=== PATIENT | female | born 1960 | race Caucasian/White ===

== ENCOUNTER → 2017-11-01 | Outpatient (CLI) | payer OTHER ==
[~2017-11-01] MED LIST: ACET-814 PO; CHOL200024 PO; DIPH25TA2 PO; PARO20TA4 PO; TRAM50TA2 PO
[2017-11-01 11:48] LABS: BASOPHILS # (AUTO) 0.08 x10^3/uL (0-0.1); BASOPHILS % (AUTO) 1 % (0-1); EOSINOPHILS % (AUTO) 2 % (1-7); LYMPHOCYTES # (AUTO) 2.91 x10^3/uL (1-3.4); LYMPHOCYTES % (AUTO) 32 % (22-44); MD NO; MEAN CORPUSCULAR HEMOGLOBIN 32.6 pg (27.0-34.8); MEAN CORPUSCULAR HGB CONC 34.5 g/dL (32.4-35.8); MEAN CORPUSCULAR VOLUME 94.6 fL (80-100); MEAN PLATELET VOLUME 7.3 fL (7.4-10.4); MONOCYTES # (AUTO) 0.62 x10^3/uL (0.2-0.8); MONOCYTES % (AUTO) 7 % (2-9); NEUTROPHILS # (AUTO) 5.39 x10^3/uL (1.8-6.8); NEUTROPHILS % (AUTO) 59 % (42-75); PLATELET COUNT 293 x10^3/uL (130-400); RED BLOOD COUNT 4.19 x10^6/uL (3.82-5.3); RED CELL DISTRIBUTION WIDTH 13.9 % (9.6-15.2)
[2017-11-01 11:51] LABS: MICROSCOPIC AUTO
[2017-11-01 11:53] LABS: CULTURE INDICATED? YES
[2017-11-01 11:54] LABS: INTERNATIONAL NORMALIZED RATIO 0.96 (0.93-1.1); PROTHROMBIN TIME 9.9 Seconds (9.6-11.5)
[2017-11-01 11:56] LABS: ANION GAP 4 mmol/L (5-15); CALCIUM 8.6 mg/dL (8.5-10.1); CHLORIDE 105 mmol/L (98-107)
[2017-11-01 11:58] LABS: CREATININE 0.74 mg/dL (0.55-1.02)
== END | disposition home or self-care (01) ==
LOC: STAR 10:35
PROVIDERS: ATTEND Neurological Surgery
DX: Z01.818 Encounter for other preprocedural examination (principal); M43.16 Spondylolisthesis, lumbar region; M51.36 Other intervertebral disc degeneration, lumbar region; M48.062 Spinal stenosis, lumbar region with neurogenic claudication
CPT/HCPCS: 36415; 71046; 80048; 81001; 85025; 85610; 85730; 87086; 93005

== ENCOUNTER 2017-11-06 08:57 | Inpatient (IN) | payer OTHER ==
[~2017-11-06] VITALS: Ht 162.6 cm; Wt 66.8 kg
[2017-11-06] MEDS ORDERED: THROMBIN 5,000 UNIT VIAL TP ONE (09:50)
[2017-11-06] MEDS ORDERED: BUPIVACAINE/PF 0.5% ONE (09:50)
[2017-11-06] MEDS ORDERED: VANCOMYCIN 1,000 MG ONE (09:51)
[2017-11-06] MEDS ORDERED: MIDAZOLAM 1 MG/ML, 2ML ONE (09:51)
[2017-11-06] MEDS ORDERED: BACITRACIN 50,000 UNIT ONE (09:51)
[2017-11-06] MEDS ORDERED: PROPOFOL 50 ML ONE ×2 (09:51)
[2017-11-06] MEDS ORDERED: EPINEPHRINE 1 MG/ML, 1ML ONE (09:51)
[2017-11-06] MEDS ORDERED: FENTANYL PF 250 MCG/5ML ONE (09:52)
[2017-11-06] MEDS ORDERED: OXYcodone 5 MG/5 ML ORAL.SOL UDC PO PRN (10:00)
[2017-11-06] MEDS ORDERED: hydrALAzine 20 MG/ML, 1ML IV PRN (10:00)
[2017-11-06] MEDS ORDERED: LABETALOL 5MG/ML, 20ML IV PRN (10:00)
[2017-11-06] MEDS ORDERED: PROMETHAZINE 25 MG/ML, 1ML IV PRN (10:00)
[2017-11-06] MEDS ORDERED: ONDANSETRON 2MG/ML, 2ML IV PRN (10:00)
[2017-11-06] MEDS ORDERED: ACETAMINOPHEN 325 MG TABLET PO PRN (10:00)
[2017-11-06] MEDS ORDERED: MEPERIDINE/PF 25MG/0.5ML IVPush PRN (10:00)
[2017-11-06] MEDS ORDERED: HYDROmorphone 1 MG/ML, 1ML IV PRN (10:00)
[2017-11-06 10:05] VITALS: BP 113/67
[2017-11-06] MEDS ORDERED: CEFAZOLIN 1,000 MG ONE ×2 (10:52)
[2017-11-06] MEDS ORDERED: DEXAMETHASONE 4 MG/ML, 1ML ONE ×2 (11:23)
[2017-11-06] MEDS ORDERED: ROCURONIUM 10MG/ML,5ML ONE (12:24)
[2017-11-06] MEDS ORDERED: ONDANSETRON 2MG/ML, 2ML ONE (12:25)
[2017-11-06] MEDS ORDERED: FENTANYL PF 100 MCG/2ML ONE (13:19)
[2017-11-06] MEDS ORDERED: ACETAMINOPHEN 650 MG/20.3 ML UDC ONE (13:19)
[2017-11-06] MEDS ORDERED: OXYcodone 5 MG/5 ML ORAL.SOL UDC ONE (13:19)
[2017-11-06] MEDS: FENTANYL PF 100 MCG/2ML IV PRN ×2 (13:22→13:31)
[2017-11-06] MEDS ORDERED: HYDROmorphone 2 MG/ML, 1ML ONE (13:23)
[2017-11-06] MEDS ORDERED: BISACODYL 10 MG SUPP PR PRN (13:30)
[2017-11-06] MEDS ORDERED: LABETALOL 5MG/ML, 20ML IVPush PRN (13:30)
[2017-11-06] MEDS ORDERED: PROMETHAZINE 25 MG/ML, 1ML IM PRN (13:30)
[2017-11-06] MEDS ORDERED: DIPHENHYDRAMINE 50 MG CAPSULE PO PRN (13:30)
[2017-11-06] MEDS ORDERED: PHARMACY MAY ADJ FOR RENAL FX MC PRN (13:30)
[2017-11-06] MEDS ORDERED: DIPHENHYDRAMINE 50 MG/ML, 1ML IVPush PRN (13:30)
[2017-11-06] MEDS ORDERED: HYDROcodone/APAP 5/325 TABLET PO PRN (13:30)
[2017-11-06] MEDS ORDERED: ASPIRIN 325 MG TABLET ONE (14:01)
[2017-11-06] MEDS ORDERED: ASPIRIN 81 MG TABLET CHEW PO ONE (14:30)
[2017-11-06 14:43] LABS: TROPONIN I < 0.015 ng/mL (0.000-0.045)
[2017-11-06 16:25] VITALS: BP 102/63
[2017-11-06] MEDS: NS + 20MEQ KCL 1,000 ML IV SCH (17:51)
[2017-11-06] MEDS: CEFAZOLIN PMX 1GM/50ML 50 ML IVPB SCH (18:29)
[2017-11-06 20:02] VITALS: BP 110/72
[2017-11-06] MEDS: SODIUM CHLORIDE FLUSH 10ML SYR IVF SCH (20:28)
[2017-11-06] MEDS: ONDANSETRON 2MG/ML, 2ML IVPush PRN (23:44)
[2017-11-06 23:53] LABS: TROPONIN I < 0.015 ng/mL (0.000-0.045)
[2017-11-07 00:11] VITALS: BP 108/63
[2017-11-07] MEDS: OXYcodone/APAP 5/325MG TABLET PO PRN ×5 (02:28→22:39)
[2017-11-07] MEDS: CEFAZOLIN PMX 1GM/50ML 50 ML IVPB SCH (03:03)
[2017-11-07 04:27] VITALS: BP 102/59
[2017-11-07 05:53] LABS: ANION GAP 6 mmol/L (5-15); CALCIUM 8.4 mg/dL (8.5-10.1); CHLORIDE 110 mmol/L (98-107)
[2017-11-07 05:55] LABS: BASOPHILS # (AUTO) 0.01 x10^3/uL (0-0.1); BASOPHILS % (AUTO) 0 % (0-1); CREATININE 0.56 mg/dL (0.55-1.02); EOSINOPHILS % (AUTO) 0 % (1-7); LYMPHOCYTES # (AUTO) 2.16 x10^3/uL (1-3.4); LYMPHOCYTES % (AUTO) 17 % (22-44); MD NO; MEAN CORPUSCULAR HEMOGLOBIN 32.1 pg (27.0-34.8); MEAN CORPUSCULAR VOLUME 94.6 fL (80-100); MEAN PLATELET VOLUME 7.7 fL (7.4-10.4); MONOCYTES # (AUTO) 0.99 x10^3/uL (0.2-0.8); MONOCYTES % (AUTO) 8 % (2-9); NEUTROPHILS # (AUTO) 9.58 x10^3/uL (1.8-6.8); NEUTROPHILS % (AUTO) 75 % (42-75); PLATELET COUNT 255 x10^3/uL (130-400); RED BLOOD COUNT 3.51 x10^6/uL (3.82-5.3)
[2017-11-07 05:59] LABS: TROPONIN I < 0.015 ng/mL (0.000-0.045)
[2017-11-07 06:50] VITALS: BP 102/63
[2017-11-07] MEDS ORDERED: PAROXETINE 20 MG TABLET PO SCH (09:00)
[2017-11-07] MEDS: CYCLOBENZAPRINE 10 MG TABLET PO PRN ×2 (09:31→22:30)
[2017-11-07] MEDS: SODIUM CHLORIDE FLUSH 10ML SYR IVF SCH ×2 (09:32→20:39)
[2017-11-07] MEDS: ENOXAPARIN 40 MG/0.4 ML SQ SCH (09:32)
[2017-11-07] MEDS: FAMOTIDINE 20 MG TABLET PO SCH ×2 (10:58→20:39)
[2017-11-07] MEDS: NS + 20MEQ KCL 1,000 ML IV SCH ×2 (10:58→22:30)
[2017-11-07] MEDS ORDERED: ACETAMINOPHEN 500 MG TABLET PO PRN (11:00)
[2017-11-07] MEDS: morphine SULFATE 10 MG/ML, 1ML IVPush PRN ×2 (11:39→20:39)
[2017-11-07 14:34] VITALS: BP 97/61
[2017-11-07 20:43] VITALS: BP 104/64
[2017-11-08] MEDS: OXYcodone/APAP 5/325MG TABLET PO PRN ×5 (02:26→22:31)
[2017-11-08 02:28] VITALS: BP 115/70
[2017-11-08] MEDS: morphine SULFATE 10 MG/ML, 1ML IVPush PRN ×2 (02:53→16:18)
[2017-11-08 05:52] LABS: BASOPHILS # (AUTO) 0.03 x10^3/uL (0-0.1); BASOPHILS % (AUTO) 0 % (0-1); EOSINOPHILS # (AUTO) 0.09 x10^3/uL (0-0.4); EOSINOPHILS % (AUTO) 1 % (1-7); LYMPHOCYTES # (AUTO) 1.95 x10^3/uL (1-3.4); LYMPHOCYTES % (AUTO) 18 % (22-44); MD NO; MEAN CORPUSCULAR HGB CONC 33.3 g/dL (32.4-35.8); MEAN CORPUSCULAR VOLUME 96.1 fL (80-100); MEAN PLATELET VOLUME 7.6 fL (7.4-10.4); MONOCYTES # (AUTO) 0.97 x10^3/uL (0.2-0.8); MONOCYTES % (AUTO) 9 % (2-9); NEUTROPHILS # (AUTO) 7.73 x10^3/uL (1.8-6.8); NEUTROPHILS % (AUTO) 72 % (42-75); PLATELET COUNT 235 x10^3/uL (130-400); RED BLOOD COUNT 3.48 x10^6/uL (3.82-5.3); RED CELL DISTRIBUTION WIDTH 13.9 % (9.6-15.2)
[2017-11-08 06:04] LABS: CHLORIDE 107 mmol/L (98-107)
[2017-11-08 06:12] LABS: ANION GAP 7 mmol/L (5-15); CALCIUM 8.1 mg/dL (8.5-10.1); CREATININE 0.49 mg/dL (0.55-1.02)
[2017-11-08 07:29] VITALS: BP 119/74
[2017-11-08] MEDS ORDERED: MAALOX/HYOSCYAMINE/LIDOCAINE 45 ML BTL PO PRN (09:00)
[2017-11-08] MEDS ORDERED: LACTATED RINGERS 1,000 ML IV SCH (09:30)
[2017-11-08] MEDS ORDERED: PAROXETINE 10 MG TABLET ONE (10:19)
[2017-11-08] MEDS: ENOXAPARIN 40 MG/0.4 ML SQ SCH (10:26)
[2017-11-08] MEDS: PAROXETINE 20 MG TABLET PO SCH (10:27)
[2017-11-08] MEDS: FAMOTIDINE 20 MG TABLET PO SCH ×2 (10:28→20:50)
[2017-11-08] MEDS: SODIUM CHLORIDE FLUSH 10ML SYR IVF SCH ×2 (10:29→20:50)
[2017-11-08] MEDS: NS + 20MEQ KCL 1,000 ML IV SCH (13:57)
[2017-11-08 14:24] VITALS: BP 132/80
[2017-11-08] MEDS: MAGNESIUM HYDROXIDE 8%, 30ML UDC PO PRN (14:50)
[2017-11-08] MEDS: ONDANSETRON 2MG/ML, 2ML IVPush PRN (14:55)
[2017-11-08 18:43] VITALS: BP 113/69
[2017-11-08] MEDS: SENNA/DOCUSATE TABLET PO PRN (20:50)
[2017-11-09 01:50] VITALS: BP 99/59
[2017-11-09] MEDS: NS + 20MEQ KCL 1,000 ML IV SCH ×2 (02:06→22:45)
[2017-11-09 05:45] LABS: BASOPHILS # (AUTO) 0.03 x10^3/uL (0-0.1); BASOPHILS % (AUTO) 0 % (0-1); EOSINOPHILS # (AUTO) 0.22 x10^3/uL (0-0.4); EOSINOPHILS % (AUTO) 2 % (1-7); LYMPHOCYTES # (AUTO) 1.77 x10^3/uL (1-3.4); LYMPHOCYTES % (AUTO) 18 % (22-44); MD NO; MEAN CORPUSCULAR HEMOGLOBIN 32.3 pg (27.0-34.8); MEAN CORPUSCULAR HGB CONC 33.9 g/dL (32.4-35.8); MEAN CORPUSCULAR VOLUME 95.4 fL (80-100); MEAN PLATELET VOLUME 7.3 fL (7.4-10.4); MONOCYTES # (AUTO) 0.88 x10^3/uL (0.2-0.8); MONOCYTES % (AUTO) 9 % (2-9); NEUTROPHILS # (AUTO) 6.94 x10^3/uL (1.8-6.8); NEUTROPHILS % (AUTO) 71 % (42-75); PLATELET COUNT 228 x10^3/uL (130-400); RED BLOOD COUNT 3.48 x10^6/uL (3.82-5.3); RED CELL DISTRIBUTION WIDTH 13.7 % (9.6-15.2)
[2017-11-09 05:50] LABS: INTERNATIONAL NORMALIZED RATIO 0.93 (0.93-1.1); PROTHROMBIN TIME 9.6 Seconds (9.6-11.5)
[2017-11-09 05:58] LABS: ANION GAP 5 mmol/L (5-15); CALCIUM 8.3 mg/dL (8.5-10.1); CHLORIDE 107 mmol/L (98-107)
[2017-11-09] MEDS: OXYcodone/APAP 5/325MG TABLET PO PRN (06:22)
[2017-11-09] MEDS ORDERED: BACITRACIN 50,000 UNIT ONE (06:37)
[2017-11-09] MEDS ORDERED: EPINEPHRINE 1 MG/ML, 1ML ONE (06:37)
[2017-11-09] MEDS ORDERED: SUGAMMADEX 200 MG/2 ML IVPush ONE (06:37)
[2017-11-09] MEDS ORDERED: BUPIVACAINE/PF 0.5% ONE ×2 (06:37→11:13)
[2017-11-09] MEDS ORDERED: THROMBIN 5,000 UNIT VIAL TP ONE (06:37)
[2017-11-09 07:16] VITALS: BP 110/70
[2017-11-09] MEDS ORDERED: REGADENOSON 0.4 MG/5 ML SYRINGE ONE (08:16)
[2017-11-09] MEDS ORDERED: VANCOMYCIN 1,000 MG ONE (09:57)
[2017-11-09] MEDS: morphine SULFATE 10 MG/ML, 1ML IVPush PRN ×2 (09:58→14:23)
[2017-11-09] MEDS: PAROXETINE 20 MG TABLET PO SCH (09:59)
[2017-11-09] MEDS: FAMOTIDINE 20 MG TABLET PO SCH ×2 (09:59→21:00)
[2017-11-09] MEDS: SODIUM CHLORIDE FLUSH 10ML SYR IVF SCH ×2 (09:59→21:00)
[2017-11-09 13:56] VITALS: BP 114/76
[2017-11-09] MEDS ORDERED: MORPHINE SULFATE 4 MG/ML, 1ML ONE (14:19)
[2017-11-09] MEDS ORDERED: FENTANYL PF 250 MCG/5ML ONE (16:06)
[2017-11-09] MEDS ORDERED: MIDAZOLAM 1 MG/ML, 2ML ONE (16:06)
[2017-11-09] MEDS ORDERED: PROPOFOL 10 MG/ML, 20ML ONE (16:07)
[2017-11-09] MEDS ORDERED: CEFAZOLIN 1,000 MG ONE ×2 (16:10)
[2017-11-09] MEDS ORDERED: WATER-INJECTION,STERILE 10 ML IV ONE (16:10)
[2017-11-09] MEDS ORDERED: DEXAMETHASONE 4 MG/ML, 1ML ONE ×2 (16:11)
[2017-11-09] MEDS ORDERED: PROPOFOL 50 ML ONE ×2 (16:11→18:20)
[2017-11-09] MEDS ORDERED: ONDANSETRON 2MG/ML, 2ML ONE (16:11)
[2017-11-09] MEDS ORDERED: PHENYLEPHRINE 10 MG/ML ONE (17:26)
[2017-11-09] MEDS ORDERED: ROCURONIUM 10 MG/ML,10ML ONE (17:26)
[2017-11-09] MEDS ORDERED: HYDROmorphone 1 MG/ML, 1ML IV PRN (17:30)
[2017-11-09] MEDS ORDERED: PROMETHAZINE 25 MG SUPP PR PRN (17:30)
[2017-11-09] MEDS ORDERED: OXYcodone 5 MG/5 ML ORAL.SOL UDC PO PRN (17:30)
[2017-11-09] MEDS ORDERED: LABETALOL 5MG/ML, 20ML IV PRN (17:30)
[2017-11-09] MEDS ORDERED: PROMETHAZINE 12.5 MG SUPP PR PRN (17:30)
[2017-11-09] MEDS ORDERED: ONDANSETRON 2MG/ML, 2ML IV PRN (17:30)
[2017-11-09] MEDS ORDERED: FENTANYL PF 100 MCG/2ML IV PRN (17:30)
[2017-11-09] MEDS ORDERED: MEPERIDINE/PF 25MG/0.5ML IVPush PRN (17:30)
[2017-11-09] MEDS ORDERED: PROMETHAZINE 25 MG/ML, 1ML IV PRN (17:30)
[2017-11-09] MEDS ORDERED: ACETAMINOPHEN 325 MG TABLET PO PRN (17:30)
[2017-11-09] MEDS ORDERED: ONDANSETRON ODT 8 MG PO PRN (17:30)
[2017-11-09] MEDS ORDERED: ALBUTEROL SULFATE 2.5 MG/3 ML NPPB PRN (17:30)
[2017-11-09] MEDS ORDERED: MORPHINE SULFATE 4 MG/ML, 1ML IVPush PRN (17:30)
[2017-11-09] MEDS ORDERED: hydrALAzine 20 MG/ML, 1ML IV PRN (17:30)
[2017-11-09] MEDS ORDERED: VANCOMYCIN 1,000 MG IM ONE (19:20)
[2017-11-09] MEDS ORDERED: NEOSTIGMINE 1 MG/ML, 10ML ONE (19:30)
[2017-11-09] MEDS ORDERED: GLYCOPYRROLATE 0.4 MG/2 ML, 2ML ONE (19:30)
[2017-11-09] MEDS ORDERED: ACETAMINOPHEN 650 MG/20.3 ML UDC ONE (20:12)
[2017-11-09] MEDS ORDERED: FENTANYL PF 100 MCG/2ML ONE (20:12)
[2017-11-09] MEDS ORDERED: OXYcodone 5 MG/5 ML ORAL.SOL UDC ONE (20:12)
[2017-11-09] MEDS: CYCLOBENZAPRINE 10 MG TABLET PO PRN (22:58)
[2017-11-10] VITALS: BP 120/69
[2017-11-10 03:30] VITALS: BP 114/67
[2017-11-10] MEDS: morphine SULFATE 10 MG/ML, 1ML IVPush PRN ×4 (05:21→19:56)
[2017-11-10 06:00] LABS: BASOPHILS # (AUTO) 0.01 x10^3/uL (0-0.1); BASOPHILS % (AUTO) 0 % (0-1); EOSINOPHILS % (AUTO) 0 % (1-7); LYMPHOCYTES # (AUTO) 0.76 x10^3/uL (1-3.4); LYMPHOCYTES % (AUTO) 7 % (22-44); MD NO; MEAN CORPUSCULAR HGB CONC 34.7 g/dL (32.4-35.8); MEAN PLATELET VOLUME 7.5 fL (7.4-10.4); MONOCYTES # (AUTO) 0.49 x10^3/uL (0.2-0.8); MONOCYTES % (AUTO) 5 % (2-9); NEUTROPHILS # (AUTO) 9.38 x10^3/uL (1.8-6.8); NEUTROPHILS % (AUTO) 88 % (42-75); PLATELET COUNT 243 x10^3/uL (130-400); RED BLOOD COUNT 2.97 x10^6/uL (3.82-5.3); RED CELL DISTRIBUTION WIDTH 13.2 % (9.6-15.2)
[2017-11-10 06:03] LABS: ANION GAP 6 mmol/L (5-15); CALCIUM 8.2 mg/dL (8.5-10.1); CHLORIDE 107 mmol/L (98-107); CREATININE 0.42 mg/dL (0.55-1.02)
[2017-11-10] MEDS: SODIUM CHLORIDE FLUSH 10ML SYR IVF SCH ×2 (08:12→19:57)
[2017-11-10] MEDS: OXYcodone/APAP 5/325MG TABLET PO PRN ×4 (08:12→23:34)
[2017-11-10] MEDS: FAMOTIDINE 20 MG TABLET PO SCH ×2 (08:12→19:56)
[2017-11-10] MEDS: PAROXETINE 20 MG TABLET PO SCH (08:12)
[2017-11-10 08:25] VITALS: BP 120/70
[2017-11-10] MEDS: ENOXAPARIN 40 MG/0.4 ML SQ SCH (12:31)
[2017-11-10] MEDS: NS + 20MEQ KCL 1,000 ML IV SCH (14:13)
[2017-11-10 15:04] VITALS: BP 101/55
[2017-11-10 18:36] VITALS: BP 113/67
[2017-11-10] MEDS: CYCLOBENZAPRINE 10 MG TABLET PO PRN (19:56)
[2017-11-11] MEDS: NS + 20MEQ KCL 1,000 ML IV SCH ×2 (01:10→14:34)
[2017-11-11 01:50] VITALS: BP 119/72
[2017-11-11] MEDS: morphine SULFATE 10 MG/ML, 1ML IVPush PRN (02:49)
[2017-11-11] MEDS: OXYcodone/APAP 5/325MG TABLET PO PRN ×2 (04:08→08:19)
[2017-11-11] MEDS: CYCLOBENZAPRINE 10 MG TABLET PO PRN ×2 (04:11→17:04)
[2017-11-11] MEDS: SENNA/DOCUSATE TABLET PO PRN (08:20)
[2017-11-11] MEDS: SODIUM CHLORIDE FLUSH 10ML SYR IVF SCH ×2 (08:20→21:00)
[2017-11-11] MEDS: PAROXETINE 20 MG TABLET PO SCH (08:20)
[2017-11-11] MEDS: FAMOTIDINE 20 MG TABLET PO SCH ×2 (08:20→21:24)
[2017-11-11] MEDS: MAGNESIUM HYDROXIDE 8%, 30ML UDC PO PRN (08:27)
[2017-11-11 08:33] VITALS: BP 114/66
[2017-11-11] MEDS ORDERED: POLYETHYLENE GLYCOL 17 GM PACKET PO PRN (10:00)
[2017-11-11] MEDS: KETOROLAC 30 MG/1 ML IV SCH ×3 (10:42→17:56)
[2017-11-11] MEDS: ENOXAPARIN 40 MG/0.4 ML SQ SCH (12:20)
[2017-11-11 13:25] VITALS: BP 94/49
[2017-11-11] MEDS: OXYcodone IR 5MG TABLET PO PRN ×2 (15:23→21:25)
[2017-11-11 16:27] VITALS: BP 124/86
[2017-11-11 19:16] VITALS: BP 105/60
[2017-11-11] MEDS: ACETAMINOPHEN 500 MG TABLET PO PRN (21:24)
[2017-11-12] MEDS: KETOROLAC 30 MG/1 ML IV SCH (00:33)
[2017-11-12 01:27] VITALS: BP 114/69
[2017-11-12] MEDS: CYCLOBENZAPRINE 10 MG TABLET PO PRN (01:34)
[2017-11-12] MEDS: OXYcodone IR 5MG TABLET PO PRN ×3 (01:34→11:36)
[2017-11-12] MEDS: ACETAMINOPHEN 500 MG TABLET PO PRN (06:17)
[2017-11-12] MEDS: NS + 20MEQ KCL 1,000 ML IV SCH (06:19)
[2017-11-12 06:55] VITALS: BP 112/73
[2017-11-12] MEDS: FAMOTIDINE 20 MG TABLET PO SCH (08:17)
[2017-11-12] MEDS: morphine SULFATE 10 MG/ML, 1ML IVPush PRN (08:17)
[2017-11-12] MEDS: SODIUM CHLORIDE FLUSH 10ML SYR IVF SCH (08:17)
[2017-11-12] MEDS: PAROXETINE 20 MG TABLET PO SCH (08:17)
[2017-11-12] MEDS ORDERED: OXYC5CAP2 PO (10:21)
[2017-11-12] MEDS ORDERED: CYCL-259 PO (10:31)
[2017-11-12] MEDS ORDERED: CEPH-368 PO (10:37)
[2017-11-12] MEDS: ENOXAPARIN 40 MG/0.4 ML SQ SCH (11:37)
== END 2017-11-12 14:15 | disposition home health service (06) | DRG 453 ==
LOC: 4NOR 08:57 → 4EST 15:55 → 4NOR 11-09 21:30
PROVIDERS: ADMIT Neurological Surgery; ATTEND Neurological Surgery
PROC: 4A11X4G Monitoring of Peripheral Nervous Electrical Activity, Intraoperative, External Approach (ICD-10-PCS; 2017-11-06)
PROC: 0SG00A0 Fusion of Lumbar Vertebral Joint with Interbody Fusion Device, Anterior Approach, Anterior Column, Open Approach (ICD-10-PCS; principal; 2017-11-06 11:00)
PROC: 0SG0071 Fusion of Lumbar Vertebral Joint with Autologous Tissue Substitute, Posterior Approach, Posterior Column, Open Approach (ICD-10-PCS; 2017-11-09)
PROC: 4A11X4G Monitoring of Peripheral Nervous Electrical Activity, Intraoperative, External Approach (ICD-10-PCS; 2017-11-09)
DX: M48.062 Spinal stenosis, lumbar region with neurogenic claudication (principal); J96.21 Acute and chronic respiratory failure with hypoxia; M43.16 Spondylolisthesis, lumbar region; M51.16 Intervertebral disc disorders with radiculopathy, lumbar region; F17.210 Nicotine dependence, cigarettes, uncomplicated; I35.8 Other nonrheumatic aortic valve disorders; I44.7 Left bundle-branch block, unspecified; Z82.49 Family history of ischemic heart disease and other diseases of the circulatory system; J44.9 Chronic obstructive pulmonary disease, unspecified; F32.9 Major depressive disorder, single episode, unspecified
CPT/HCPCS: 36415; 72100; 72131; 78452; 80048; 84484; 85025; 85610; 93005; 93017; 93306; C1713; C1729; C1776; J0171; J0690; J1100; J1170; J1650; J1885; J2250; J2405; J2704; J2710; J2785; J3010; J3370; J3480; J3490; A9502; C1762; C9352; C9898; J2270; J2370

== ENCOUNTER → 2018-03-31 | Outpatient (CLI) | payer OTHER ==
[~2018-03-31] MED LIST changes: +CEPH-368 PO; +CYCL-259 PO; +OXYC5CAP2 PO
== END | disposition home or self-care (01) ==
LOC: CVU 09:38
PROVIDERS: ATTEND Physician Assistant
DX: I99.9 Unspecified disorder of circulatory system (principal); F17.200 Nicotine dependence, unspecified, uncomplicated
CPT/HCPCS: 93922

== ENCOUNTER 2018-10-20 09:41 | Outpatient (CLI) | payer MEDICARE, MEDICAID | END 2018-10-20 23:59 | disposition home or self-care (01) | LOC: STAR 09:41 | PROVIDERS: ATTEND Neurological Surgery | DX: Z01.818 Encounter for other preprocedural examination (principal); M47.12 Other spondylosis with myelopathy, cervical region; R82.998 Other abnormal findings in urine | CPT/HCPCS: 36415; 71046; 80053; 81001; 85025; 85610; 85730; 87086; 93005 ==

== ENCOUNTER 2018-10-31 09:46 | Inpatient (IN) | payer MEDICARE, MEDICAID ==
[~2018-10-31] VITALS: Ht 162.6 cm; Wt 68.2 kg
[2018-11-01 12:40] VITALS: BP 113/57
== END 2018-11-01 15:04 | disposition home or self-care (01) | DRG 472 ==
LOC: ORIP 12:07 → 4NOR 18:42 → DCLOUNGE 11-01 14:46
PROVIDERS: ADMIT Neurological Surgery; ATTEND Neurological Surgery
PROC: 0RG20A0 Fusion of 2 or more Cervical Vertebral Joints with Interbody Fusion Device, Anterior Approach, Anterior Column, Open Approach (ICD-10-PCS; principal; 2018-10-31)
PROC: 00NW0ZZ Release Cervical Spinal Cord, Open Approach (ICD-10-PCS; 2018-10-31)
DX: M48.02 Spinal stenosis, cervical region (principal); M50.021 Cervical disc disorder at C4-C5 level with myelopathy; F17.210 Nicotine dependence, cigarettes, uncomplicated; M19.90 Unspecified osteoarthritis, unspecified site; F41.9 Anxiety disorder, unspecified; F32.9 Major depressive disorder, single episode, unspecified; M50.121 Cervical disc disorder at C4-C5 level with radiculopathy
CPT/HCPCS: 36415; 72040; 77002; 86850; 86900; C1713; G0378; J0690; J1100; J2250; J2405; J2704; J3010; J3370; C1762; J0330; J2370; J3480